=== PATIENT | male | born 1990 | race African-American/Black ===

== ENCOUNTER 2020-07-16 16:20 | Emergency (ER) | payer OTHER ==
[~2020-07-16] VITALS: Ht 195.6 cm; Wt 138.3 kg
[~2020-07-16 16:20] MED LIST: PHENERGAN25 MG RE; ZOFRAN ODT4 MG PO
[2020-07-16 16:30] VITALS: BP 168/103
[2020-07-16] MEDS ORDERED: ULTRAM 50MG TAB50 MG PO (18:50)
[2020-07-16] MEDS ORDERED: DOXYCYCLINE 10100 MG PO (18:50)
== END 2020-07-16 19:20 | disposition home or self-care (01) ==
LOC: ER 16:20
DX: L03.116 Cellulitis of left lower limb (principal); L03.314 Cellulitis of groin; L02.416 Cutaneous abscess of left lower limb; L02.214 Cutaneous abscess of groin; J45.909 Unspecified asthma, uncomplicated; Z79.899 Other long term (current) drug therapy